=== PATIENT | male | born 1955 | race Caucasian/White ===

== ENCOUNTER → 2024-09-11 13:35 | Outpatient (REF) | payer OTHER, SELFPAY ==
[2024-09-11 15:07] LABS: % Basophils 0.2 % (0-2); % Eosinophils 0.1 % (0-6); % Immature Granulocytes 0.3 % (0-0.5); % Lymphocytes 13.4 % (20.5-51.1); % Monocytes 9.8 % (1.7-9.3); % Neutrophils 76.2 % (42.2-75.2); Absolute Lymphocytes 1.6 10^3/uL (1.2-3.4); Absolute Monocytes 1.1 10^3/uL (0.1-0.6); Absolute Neutrophils 8.9 10^3/uL (1.4-6.5); Hematocrit 45.9 % (39.0-52.0); Hemoglobin 14.8 g/dL (13.0-18.0); Mean Corp Hgb Conc. 32.2 g/dL (33.0-37.0); Mean Corpuscular Volume 96.2 fL (80.0-94.0); Nucleated Red Blood Cells % 0 % (-); Platelet Count 169 10^3/uL (130-400); Red Blood Cell Count 4.77 10^6/uL (4.70-6.10); Red Cell Dist. Width 13.2 % (11.5-14.5); White Blood Cell Count 11.6 10^3/uL (4.8-10.8)
[2024-09-11 15:19] LABS: ALT (SGPT) 12 U/L (0-50); AST (SGOT) 18 U/L (17-59); Albumin 4.3 g/dl (3.5-5.0); Alkaline Phosphatase 69 U/L (38-126); Blood Urea Nitrogen 8 mg/dl (9-20); Calcium 10.3 mg/dl (8.4-10.2); Carbon Dioxide 27 mmol/L (22-30); Chloride 106 mmol/L (98-107); Glucose 85 mg/dl (70-99); HDL Cholesterol 62 mg/dl; LDL Cholesterol, Calculated 78 mg/dl; Potassium 4.7 mmol/L (3.5-5.1); Sodium 143 mmol/L (135-145); Total Bilirubin 0.7 mg/dl (0.2-1.3); Total Cholesterol 157 mg/dl (50-199); Total Protein 7.3 g/dl (6.3-8.2); Triglyceride 88 mg/dl (10-149); Very Low Density Lipoprotein 17 mg/dl (0-30); eGFR > 60.00
[2024-09-11 15:39] LABS: Microalbumin, Random Urine < 0.6 mg/dl (0.6-1.7)
[2024-09-12 09:05] LABS: Glycohemoglobin (HgbA1c) 5.7 % (4.0-5.6)
== END ==
LOC: REG 13:35
PROVIDERS: ATTENDING PHYSICIAN Physician Assistant Medical
DX: E11.9 Type 2 diabetes mellitus without complications (principal); M25.511 Pain in right shoulder; M25.512 Pain in left shoulder
CPT/HCPCS: 36415; 73030; 80053; 80061; 82043; 82570; 83036; 85025

== ENCOUNTER 2024-11-09 17:19 | Observation (INO) | payer OTHER, SELFPAY ==
[2024-11-09 11:30] VITALS: BP 137/92
[2024-11-09 12:03] LABS: Hematocrit 41.2 % (39.0-52.0); Hemoglobin 13.6 g/dL (13.0-18.0); Mean Corp Hgb Conc. 33.0 g/dL (33.0-37.0); Mean Corpuscular Volume 93.0 fL (80.0-94.0); Nucleated Red Blood Cells % 0 % (-); Platelet Count 175 10^3/uL (130-400); Red Cell Dist. Width 13.3 % (11.5-14.5)
[2024-11-09 12:31] LABS: Blood Urea Nitrogen 12 mg/dl (9-20); Calcium 9.1 mg/dl (8.4-10.2); Carbon Dioxide 21 mmol/L (22-30); Chloride 108 mmol/L (98-107); Glucose 75 mg/dl (70-99); Potassium 4.4 mmol/L (3.5-5.1); Sodium 138 mmol/L (135-145); eGFR > 60.00
[2024-11-09 14:04] LABS: Depakane 99.4 ug/ml (50.0-120.0)
[2024-11-09 14:51] VITALS: BP 135/79
[2024-11-09 15:13] LABS: Urine Character Clear (Clear)
[2024-11-09 15:31] LABS: COVID-19 Antigen Negative (Negative)
[2024-11-09 15:53] LABS: ALT (SGPT) 11 U/L (0-50); AST (SGOT) 15 U/L (17-59); Albumin 3.7 g/dl (3.5-5.0); Alkaline Phosphatase 61 U/L (38-126); Total Protein 6.2 g/dl (6.3-8.2)
--- NOTE | 2024-11-09 16:04 | ED.GENMED ---
History of Present Illness
General
Chief Complaint: Fatigue
Time Seen by Provider: 11/09/24 12:06
History of Present Illness
History of Present Illness:
69-year-old male with history of behavioral disorders and diabetes presents to the emergency department for evaluation of severe weakness. He notes he has had diffuse myalgias arthralgias to bilateral upper extremities for the past 6 months or
more, has not gotten this evaluated by the primary care physician. Over the past several days he has been essentially unable to care for himself because he has a hard time in bed and a hard time using the arms. He also feels though he has a hard
time ambulating due to a shuffling gait. Denies any true difficulty breathing or URI symptoms at this time.
Review of Systems
Review of Systems
Allergies reviewed?: Yes
All Other Systems: ROS reviewed and negative except as documented in HPI and ROS
Phy Exam
Physical Exam
Physical Exam:
GEN: Well appearing, NAD, WDWN
Eyes: PERRLA, EOMs intact, no scleral icterus
HENT: NCAT, oral mucosa moist
Lungs: CTAB, no wheezes, rales, rhonchi, normal chest wall excursion
Cardiac: RRR, no M/R/G, no peripheral edema. Radial pulses 2+ bilat
Abdomen: S, NT, ND, NABS, no masses or hepatosplenomegaly
Neuro: AO x 3, moves all extremities freely, upper extremities appear weak but this is potentially related to pain, gait is shuffling and unsteady
MSK: No gross deformity or ecchymosis. No large joint effusions to the upper or lower extremities
Skin: No rashes, petechiae. Normal color, no pallor or jaundice.
Psych: Calm, cooperative, proper hygiene
Course
Orders/Labs/Results
Orders:
Orders
11/09/24 11:49
BMP [Basic Metabolic Panel] Urgent
Complete Blood Count/With Diff Urgent
Kfxhn-Ujtr-Exhkyce Urgent
Comment: ADDON
11/09/24 13:26
Add On- LAB Urgent
Tests Added?: LFT, calcium
CT Head W/o Iv Contrast Urgent
Comment:
Reason For Exam: weakness, shuffling gait
11/09/24 13:31
Valproic Acid Level [Depakane] Urgent
11/09/24 14:54
CR Chest - 2 Views Urgent
Comment:
Reason For Exam: fever
11/09/24 15:02
COVID-19 Antigen Urgent
Source: Nasal Swab
Urinalysis Reflex To Culture Urgent
Date Specimen was Collected: 11/09/24
Time Specimen was Collected: 14:56
11/09/24 16:22
Blood Culture Q30M
JULIO CÉSAR Source: Blood/Venous
Specimen Description:
Blood Culture Q30M
JULIO CÉSAR Source: Blood/Venous
Specimen Description:
Influenza A+B Rapid Molecular Urgent
JULIO CÉSAR Source: Nasal Swab
Specimen Description:
11/09/24 16:40
Obtain Records As Directed
Dates of Information to be Released: Most Recent
Type of Information Requested: Last Office Visit H&P
Obtain Records from: PCP - Drew Medley [facility]
11/09/24 16:44
Admit/Transfer Patient As Directed
Co-Sign Provider:
Level of Care: Observation services
Assign to:: Medical/Surgical
Physician / Group: Arcadio
Diagnosis: Fever, Ambulatory Dysfunction
PRN Pain Medication Management As Directed
May give lesser potent ordered pain med per pt: Yes
preference::
Protocol:: Medication orders for pain may be administered in a
manner that supports deferring to patient preference
when the pt is:
- Requesting an ordered lesser potent pain medication.
Least to most potent pain medications are defined
as: acetaminophen < NSAID < tramadol < opioids
(morphine, oxycodone, hydromorphone).
- Requesting a lesser dose of the same medication IF
ORDERED.
- Requesting a less intrusive route of administration
if both routes are prescribed by the provider (PO <
IV).
11/09/24 16:46
Code Status As Directed
Resuscitation Status: Full Code
Abnormal Lab Results
11/09/24 11/09/24
11:49 15:02
RBC 4.43 L 10^6/uL
(4.70-6.10)
MPV 10.7 H fL
(7.4-10.4)
Abs Immat Gran (auto) 0.1 H 10^3/uL
(0-0.05)
Absolute Neuts (auto) 7.1 H 10^3/uL
(1.4-6.5)
Absolute Monos (auto) 1.4 H 10^3/uL
(0.1-0.6)
Immature Gran % 1.3 H %
(0-0.5)
Lymphocytes % 14.9 L %
(20.5-51.1)
Monocytes % 13.5 H %
(1.7-9.3)
Chloride 108 H mmol/L
(98-107)
Carbon Dioxide 21 L mmol/L
(22-30)
Creatinine 0.4 L mg/dL
(0.7-1.3)
AST 15 L U/L
(17-59)
Total Protein 6.2 L g/dl
(6.3-8.2)
Urine Ketones 3+ A
(Negative)
Urine Glucose 4+ A
(Negative)
11/09/24 11:49
11/09/24 11:49
Vital Signs
Initial and Last Documented VS:
Initial Vital Signs
Temp Pulse Resp BP Pulse Ox
99.7 F 91 18 137/92 95
11/09/24 11:30 11/09/24 11:30 11/09/24 11:30 11/09/24 11:30 11/09/24 11:30
Last Documented Vital Signs
Temp Pulse Resp BP Pulse Ox
97.7 F 70 18 157/110 97
11/09/24 17:44 11/09/24 17:44 11/09/24 17:44 11/09/24 17:44 11/09/24 17:44
MDM/Problems Addressed
MDM/Problems Addressed:
Because the patient's symptoms at this time is not clear however he seems profoundly functionally deconditioned and unable to get himself up out of bed. 6-month duration of symptoms suggest an autoimmune condition however his gait and overall
appearance is suspicious for parkinsonism. He is not a safe discharge at this will admit
*Pulse Oximetry
SaO2: 100
Oxygen Mode of Delivery: Room air
Patient hypoxic: no
*Critical Care Note
Total Time (30-74mins, 75-104mins- exclusive of procedures): Not Applicable
ED Attending Note
-
Portions of this chart may have been created with voice recognition software.� Occasional wrong word or��sound alike� substitutions may have occurred due to the inherent limitations of voice recognition software.
Discharge Plan
Departure
Patient Disposition: Admit
Date of Disposition: 11/09/24
Time of Disposition: 16:07
Admit to: Med/Surg
Presentation/result/management discussed w/ accepting MD/DO: Hospitalist
Discharge Problem:
Acute febrile illness, Weakness
Interventions
Interventions:
*Risk Screen - Suicide Last Done: 11/09/24 11:30
*General Assessment Last Done: 11/09/24 11:36
*Neglect/Abuse Screening Last Done: 11/09/24 11:30
*ED- Fall Risk Assessment Last Done: 11/09/24 11:36
*ED COVID-19 Vaccine History Last Done: 11/09/24 11:36
--- NOTE | 2024-11-09 16:15 | HPS.HSE ---
Family Physician
-
Family Physician: Drew Medley
Chief Complaint
-
Fatigue and Muscle Pain
History of Present Illness
Patient is a 69-year-old male past medical history of schizoaffective disorder, diabetes mellitus and hyperlipidemia who presents with fatigue and muscle pains. Patient is a poor historian. He resides in a group apartment part of [facility]. Prior to two days ago patient was managing his own medications but patient has been having more difficulty taking care of himself and staff took over managing his medications. Patient reports he feels generally weak and fatigued. He
reports some muscle pains. While in the emergency department he was found to have a temp of 100.6F. Patient was not aware he had a fever. He denies any other associated symptoms.
Medical History
Past Medical History
Past Medical History: Reports Other
Additional Past Medical History:
Diabetes Mellitus, Type II
Schizoaffective Disorder
GERD
Essential Tremors
Hyperlipidemia
Short-Term Memory Loss
Past Surgical History: Reports Other
Social History
Tobacco: Non-smoker
Family History
Family History: Not pertinent
Allergies / Home Medications
Allergies reflects when Allergies were last updated in [employer].
Home Medications with original date entered in [employer]
Allergy/Medication List:
Allergies
Allergy/AdvReac Type Severity Reaction Status Date / Time
chloral hydrate Allergy Unknown Verified 11/09/24 11:32
haloperidol Allergy Unknown Verified 11/09/24 11:32
Home Medications
atorvastatin 40 mg tablet (Lipitor) 40 mg PO QPM 11/09/24
benztropine 0.5 mg tablet 0.5 mg PO HS 11/09/24
divalproex 500 mg tablet,extended release 24 hr 1,000 mg PO HS 11/09/24
empagliflozin 10 mg tablet (Jardiance) 10 mg PO DAILY 11/09/24
glimepiride 4 mg tablet 4 mg PO DAILY 11/09/24
metformin 500 mg tablet 1,000 mg PO BID 11/09/24
omeprazole 40 mg capsule,delayed release 40 mg PO DAILY 11/09/24
quetiapine 400 mg tablet (Seroquel) 400 mg PO HS 11/09/24
Review of Systems
-
A 12 point ROS was completed and negative except as noted: Yes
Constitutional: Reports Fever; Denies Chills
Respiratory: Denies Cough or Trouble Breathing
Cardiac: Denies Chest Pain or Palpitations
Abdomen/GI: Denies Abdominal Pain, Nausea, Vomiting or Diarrhea
: Denies Dysuria
Physical Exam
Vital Signs
Vital Signs
Temp Pulse Resp BP Pulse Ox
100.6 F H 93 18 135/79 100
11/09/24 14:51 11/09/24 14:51 11/09/24 14:51 11/09/24 14:51 11/09/24 16:07
Physical Exam
General: Comfortable and Conversant
HEENT: Anicteric and Moist mucous membranes
Respiratory: Clear and Non Labored Respirations
Cardiac: S1/S2 and Regular Rhythm
GI: Soft and Non Tender
Genito-urinary: Clear Urine
Musculoskeletal: No Clubbing and No Cyanosis
Skin: Warm and Dry; No Rash
Neuro: Awake, Alert, Oriented and Nonfocal/grossly intact
Psych: Other (Forgetful)
Laboratory Results
-
11/09/24 11:49
11/09/24 11:49
Laboratory Results
Total Bilirubin 0.4 mg/dl (0.2-1.3) 11/09/24 11:49
AST 15 U/L (17-59) L 11/09/24 11:49
ALT 11 U/L (0-50) 11/09/24 11:49
Alkaline Phosphatase 61 U/L (38-126) 11/09/24 11:49
Chest X-Ray:
No acute cardiopulmonary process.
Head CT:
No evidence of acute intracranial abnormality.
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
Data Reviewed
-
Diagnostic Radiology: Report Reviewed by me
CT Scan: Report Reviewed by me
Lab Data: Labs Reviewed by me
Impression/Plan
-
Febrile Illness
-Check Influenza swab
-Check blood cultures
-Monitor fever curve
Ambulatory Dysfunction
-Consult PT/OT
-Incidental focal area of encephalomalacia in right temporal lobe noted on head CT, appears old and does not appear to be contributing to current symtpoms
Diabetes Mellitus, Type II
-Sugars running on the low side
-Continue Jardiance and metformin
-Hold Glipizide
Hyperlipidemia
-Continue atorvastatin
Schizoaffective Disorder
-Continue benztropine, divalproex, quetiapine
GERD
-Continue Protonix
DVT proph: Lovenox
Code Status: Full Code
[2024-11-09 17:44] VITALS: BP 157/110
--- NOTE | 2024-11-09 17:54 | CM ---
CM reviewed chart and met with pt bedside in ED. Pt lives with roommates in 2 story hopau[place], 10 YVES, has first floor half BA, full flight of steps to second floor BR/full BA.
Pt independent with ADLs, personal care and ambulation at baseline. NO DME.
No hx VN or SNF.
PCP: Drew Medley
[address] [id number] [address]
CM will continue to follow for discharge planning needs.
[2024-11-09 18:38] VITALS: BMI 21.1
[2024-11-09 18:48] VITALS: BP 153/103; BMI 21.1
[2024-11-09] MEDS: LIPITOR 40 MG PO (19:15)
[2024-11-09] MEDS: GLUCOPHAGE 1000 MG PO (19:15)
[2024-11-09] MEDS: LOVENOX 40 MG SC (19:15)
[2024-11-09] MEDS: NSS 1000 IV (19:16)
[2024-11-09 19:20] LABS: Glucose - Point of Care 80 mg/dl (70-99)
--- NOTE | 2024-11-09 19:41 | PTCARENOTE ---
pt admitted from ED to room 418-01. pt pulled over from stretcher to bed. pt awake, poor historian, forgetful, reports generalized weakness, and pain in upper extremities. bedscale weight obtained. pt oriented to room and unit. bilateral upper
extremity tremors noted.
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
[2024-11-09] MEDS: COGENTIN 0.5 MG PO (21:09)
[2024-11-09] MEDS: SEROQUEL 400 MG PO (21:09)
[2024-11-09] MEDS: DEPAKOTE ER (24 HR RELEASE) 1000 MG PO (21:09)
[2024-11-09] MEDS: TYLENOL 650 MG PO (21:17)
[2024-11-09 21:45] LABS: Glucose - Point of Care 157 mg/dl (70-99)
[2024-11-09 23:49] VITALS: BP 130/88
[2024-11-10 06:00] VITALS: BMI 21.1
[2024-11-10] MEDS: NSS 1000 IV (06:56)
[2024-11-10] MEDS: TYLENOL 650 MG PO (07:09)
[2024-11-10 07:47] LABS: Glucose - Point of Care 95 mg/dl (70-99)
[2024-11-10 08:00] VITALS: BP 165/86
[2024-11-10] MEDS: NOVOLOG FLEXPEN-MODERATE RESISTANCE SC ×2 (08:00→12:38)
[2024-11-10 08:06] LABS: Hematocrit 39.8 % (39.0-52.0); Hemoglobin 13.2 g/dL (13.0-18.0); Mean Corp Hgb Conc. 33.2 g/dL (33.0-37.0); Mean Corpuscular Volume 94.3 fL (80.0-94.0); Platelet Count 172 10^3/uL (130-400); Red Cell Dist. Width 13.6 % (11.5-14.5)
[2024-11-10 08:31] LABS: Blood Urea Nitrogen 11 mg/dl (9-20); Calcium 9.1 mg/dl (8.4-10.2); Carbon Dioxide 22 mmol/L (22-30); Chloride 109 mmol/L (98-107); Estimated Creatinine Clearance 116 ml/min; Glucose 72 mg/dl (70-99); Magnesium 2.2 mg/dl (1.6-2.3); Potassium 4.3 mmol/L (3.5-5.1); Sodium 141 mmol/L (135-145); eGFR > 60.00
[2024-11-10 09:20] VITALS: BP 130/84; PULSE 78; O2SAT 95
[2024-11-10 09:21] VITALS: BP 130/84; PULSE 78; O2SAT 95
[2024-11-10] MEDS: GLUCOPHAGE 1000 MG PO ×2 (09:39→18:12)
[2024-11-10] MEDS: FARXIGA 10 MG PO (09:39)
[2024-11-10] MEDS: PROTONIX 40 MG PO (09:40)
--- NOTE | 2024-11-10 09:48 | W.PN.HOSP.TC ---
Today's Communication/Plan
-
see plan
Assessment / Plan
Assessment / Plan
Gen: NAD, AAOx3.
Eyes: EOMI, PERRLA, no scleral icterus.
Neck: supple.
CV: RRR, +S1/S2, no m/r/g.
Resp: CTAB, no rales, wheezes, or rhonchi.
Abd: +BS, soft, NT, ND
Skin: No rashes.
Neuro: CN 2-12 intact, non-focal.
Psych: Normal mood and affect.
CXR: No acute cardiopulmonary process.
CT brain: No evidence of acute intracranial abnormality. 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
Febrile Illness:
-isolated fever, no recurrence
-COVID/Flu NEG
-BCxs pending
-with myalgias check CPK, BG, ESR, CRP
Ambulatory Dysfunction
-Consult PT/OT
-Incidental focal area of encephalomalacia in right temporal lobe noted on head CT, appears old and does not appear to be contributing to current symptoms
-MRI brain ordered
DM2:
-Continue Jardiance and metformin
-Holding home Glipizide
-check a1c
Other problems:
Hyperlipidemia: cont statin
Schizoaffective Disorder: cont benztropine, divalproex, quetiapine
GERD: cont PPI
FULL/Lovenox
Anticipated Discharge: 24 - 48 hours
Subjective/Interval History
-
Date of Service: November 10, 2024
Objective Data
-
Labs:
Laboratory Results
11/10/24
06:51
WBC 6.5
Hgb 13.2
Hct 39.8
Plt Count 172
Sodium 141
Potassium 4.3
Chloride 109 H
Carbon Dioxide 22
BUN 11
Creatinine 0.4 L
Glucose 72
Calcium 9.1
Vital Signs:
Vital Signs
Temp Pulse Resp BP Pulse Ox
98.1 F 83 16 165/86 93
11/10/24 08:00 11/10/24 08:00 11/10/24 08:00 11/10/24 08:00 11/10/24 08:00
I&O
11/09/24 11/10/24 11/11/24
06:59 06:59 06:59
Intake Total 1240 / 1240
Output Total 425 / 425
Balance 815 / 815
[2024-11-10 11:56] LABS: Glycohemoglobin (HgbA1c) 6.0 % (4.0-5.6)
[2024-11-10 12:12] LABS: Glucose - Point of Care 134 mg/dl (70-99)
[2024-11-10 12:33] LABS: C-Reactive Protein 87.00 mg/L (0.0-10.00)
[2024-11-10 15:28] VITALS: BP 155/95
[2024-11-10 17:14] LABS: Glucose - Point of Care 189 mg/dl (70-99)
[2024-11-10] MEDS: NOVOLOG FLEXPEN-MODERATE RESISTANCE 1 UNITS SC (18:09)
[2024-11-10] MEDS: LIPITOR 40 MG PO (18:12)
[2024-11-10] MEDS: LOVENOX 40 MG SC (18:12)
[2024-11-10 21:44] LABS: Glucose - Point of Care 116 mg/dl (70-99)
[2024-11-10] MEDS: COGENTIN 0.5 MG PO (21:55)
[2024-11-10] MEDS: SEROQUEL 400 MG PO (21:55)
[2024-11-10] MEDS: DEPAKOTE ER (24 HR RELEASE) 1000 MG PO (21:56)
[2024-11-10 23:22] VITALS: BP 122/83
[2024-11-11] MEDS: NSS 1000 IV ×3 (03:03→21:25)
[2024-11-11 06:00] VITALS: BMI 21.3
[2024-11-11 07:00] VITALS: BP 142/86
[2024-11-11 07:13] LABS: Glucose - Point of Care 122 mg/dl (70-99)
--- NOTE | 2024-11-11 07:59 | W.PN.HOSP.TC ---
Today's Communication/Plan
-
see plan
Assessment / Plan
Assessment / Plan
Gen: NAD, awake and alert
Eyes: EOMI, PERRLA, no scleral icterus.
Neck: supple.
CV: Remains RRR, +S1/S2, no m/r/g.
Resp: CTAB, no rales, wheezes, or rhonchi.
Abd: +BS, soft, NT, ND
Skin: No rashes.
Neuro: CN 2-12 intact, patient moves all 4 extremities but he says movement is limited due by pain
Psych: Normal mood and affect.
11/09/24 16:22 Blood/Venous Blood Culture - Preliminary
No Growth in 24 hours- Final report to follow
11/09/24 16:22 Blood/Venous Blood Culture - Preliminary
No Growth in 24 hours- Final report to follow
11/09/24 16:22 Nasal Swab Influenza Types A & B (ROBE) - Final
Negative for Influenza A & B, NAAT
Negative results must be combined with clinical observations
and patient history.
Nucleic Acid Amplification test (NAAT)performed on the
[employer] ID NOW platform.
CXR: No acute cardiopulmonary process.
CT brain: No evidence of acute intracranial abnormality. 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
MRI brain: No acute intracranial abnormality.
Febrile Illness:
-isolated fever, no recurrence
-COVID/Flu NEG
-BCxs NGTD
-with myalgias serologies checked as follows: ESR 15, CRP 87, CPK 31, BG pending
-Pt without recurrent fever and BCxs NG x 24 hours. Doubt fever was related to infection, more likely inflammatory state. Cont to monitor off abx.
-will give one dose of Prednisone 40mg and monitor for clinical response
Ambulatory Dysfunction
-PT/OT
-Incidental focal area of encephalomalacia in right temporal lobe noted on head CT, appears old and does not appear to be contributing to current symptoms
-MRI brain without acute intracranial abnormality
DM2:
-a1c 6.0%
-Continue Jardiance and metformin
-resume home Glipizide based on BG trend
Other problems:
Hyperlipidemia: cont statin
Schizoaffective Disorder: cont benztropine, divalproex, quetiapine
GERD: cont PPI
FULL/Lovenox
Dispo: monitor for response to 1 dose Prednisone. Likely d/c 11/12/24.
Anticipated Discharge: Today
Subjective/Interval History
-
Date of Service: November 11, 2024
Still with myalgias
Objective Data
-
Vital Signs:
Vital Signs
Temp Pulse Resp BP Pulse Ox
98.0 F 81 16 142/86 96
11/11/24 07:00 11/11/24 07:00 11/11/24 07:00 11/11/24 07:00 11/11/24 07:00
I&O
11/10/24 11/11/24 11/12/24
06:59 06:59 06:59
Intake Total 1240 / 1240 1800 / 1800
Output Total 425 / 425 1125 / 1125
Balance 815 / 815 675 / 675
[2024-11-11] MEDS: NOVOLOG FLEXPEN-MODERATE RESISTANCE SC ×2 (08:00→17:02)
[2024-11-11] MEDS: DELTASONE 40 MG PO (10:44)
[2024-11-11] MEDS: GLUCOPHAGE 1000 MG PO ×2 (10:45→17:10)
[2024-11-11] MEDS: AMARYL 4 MG PO (10:45)
[2024-11-11] MEDS: PROTONIX 40 MG PO (10:45)
[2024-11-11] MEDS: FARXIGA 10 MG PO (10:46)
[2024-11-11 11:43] LABS: Hepatitis C Antibody Negative (Negative)
[2024-11-11 13:09] LABS: Glucose - Point of Care 168 mg/dl (70-99)
[2024-11-11] MEDS: NOVOLOG FLEXPEN-MODERATE RESISTANCE 1 UNITS SC (13:57)
[2024-11-11 14:57] VITALS: BP 149/88
[2024-11-11 16:45] LABS: Glucose - Point of Care 105 mg/dl (70-99)
[2024-11-11] MEDS: LOVENOX 40 MG SC (17:09)
[2024-11-11] MEDS: LIPITOR 40 MG PO (17:10)
[2024-11-11] MEDS: DEPAKOTE ER (24 HR RELEASE) 1000 MG PO (21:14)
[2024-11-11] MEDS: COGENTIN 0.5 MG PO (21:15)
[2024-11-11] MEDS: SEROQUEL 400 MG PO (21:15)
[2024-11-11 21:19] LABS: Glucose - Point of Care 114 mg/dl (70-99)
[2024-11-11 23:35] VITALS: BP 139/85
[2024-11-12 06:00] VITALS: BMI 21.4
[2024-11-12 07:34] LABS: Hematocrit 36.8 % (39.0-52.0); Hemoglobin 12.0 g/dL (13.0-18.0); Mean Corp Hgb Conc. 32.6 g/dL (33.0-37.0); Mean Corpuscular Volume 95.8 fL (80.0-94.0); Nucleated Red Blood Cells % 0 % (-); Platelet Count 192 10^3/uL (130-400); Red Cell Dist. Width 13.4 % (11.5-14.5)
[2024-11-12 08:00] VITALS: BP 146/82
[2024-11-12 08:17] LABS: Blood Urea Nitrogen 14 mg/dl (9-20); Calcium 9.0 mg/dl (8.4-10.2); Carbon Dioxide 27 mmol/L (22-30); Chloride 112 mmol/L (98-107); Estimated Creatinine Clearance 118 ml/min; Glucose 72 mg/dl (70-99); Potassium 4.0 mmol/L (3.5-5.1); Sodium 142 mmol/L (135-145); eGFR > 60.00
[2024-11-12 08:34] LABS: Glucose - Point of Care 78 mg/dl (70-99)
[2024-11-12] MEDS: TYLENOL 650 MG PO (09:09)
[2024-11-12] MEDS: PROTONIX 40 MG PO (09:11)
[2024-11-12] MEDS: AMARYL 4 MG PO (09:11)
[2024-11-12] MEDS: FARXIGA 10 MG PO (09:11)
[2024-11-12] MEDS: GLUCOPHAGE 1000 MG PO ×2 (09:12→17:34)
[2024-11-12] MEDS: NOVOLOG FLEXPEN-MODERATE RESISTANCE SC ×3 (09:12→17:33)
--- NOTE | 2024-11-12 10:10 | W.PN.HOSP.TC ---
Today's Communication/Plan
-
continue steroids
monitor symptoms
repeat CRP in AM
DC planning to SNF and eventual OP rheum eval
Assessment / Plan
Assessment / Plan
Gen: NAD, awake and alert
Eyes: EOMI, PERRLA, no scleral icterus.
Neck: supple.
CV: Remains RRR, +S1/S2, no m/r/g.
Resp: CTAB, no rales, wheezes, or rhonchi.
Abd: +BS, soft, NT, ND
Skin: No rashes.
Neuro: CN 2-12 intact, patient moves all 4 extremities but he says movement is limited due by pain
Psych: Normal mood and affect.
11/09/24 16:22 Blood/Venous Blood Culture - Preliminary
No Growth in 24 hours- Final report to follow
11/09/24 16:22 Blood/Venous Blood Culture - Preliminary
No Growth in 24 hours- Final report to follow
11/09/24 16:22 Nasal Swab Influenza Types A & B (ROBE) - Final
Negative for Influenza A & B, NAAT
Negative results must be combined with clinical observations
and patient history.
Nucleic Acid Amplification test (NAAT)performed on the
[employer] ID NOW platform.
CXR: No acute cardiopulmonary process.
CT brain: No evidence of acute intracranial abnormality. 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
MRI brain: No acute intracranial abnormality.
Febrile Illness:
-isolated fever, no recurrence
-COVID/Flu NEG
-BCxs NGTD
-with myalgias serologies checked as follows: ESR 15, CRP 87, CPK 31, BG pending
-Pt without recurrent fever and BCxs NG x 24 hours. Doubt fever was related to infection, more likely inflammatory state. Cont to monitor off abx.
-continue steroids; taper over weeks
- repeat CRP in AM
- OP Rheum eval for underlying rheum/vasculitis d/o
Ambulatory Dysfunction
-PT/OT - SNF recommended. Patient agreeable.
-Incidental focal area of encephalomalacia in right temporal lobe noted on head CT, appears old and does not appear to be contributing to current symptoms
-MRI brain without acute intracranial abnormality
DM2:
-a1c 6.0%
-Continue Jardiance and metformin
-resume home Glipizide based on BG trend
Hyperlipidemia: cont statin
Schizoaffective Disorder: cont benztropine, divalproex, quetiapine
GERD: cont PPI
DVT ppx: Lovenox
Code: Full
Anticipated Discharge: 24 - 48 hours
Subjective/Interval History
-
Date of Service: November 12, 2024
reports mild improvement with steroid dose from 11/11
reports mostly upper arm discomfort
denies joint pains, rash, no headaches. no GI complaints
Objective Data
-
Labs:
Laboratory Results
11/12/24
06:44
WBC 7.5
Hgb 12.0 L
Hct 36.8 L
Plt Count 192
Sodium 142
Potassium 4.0
Chloride 112 H
Carbon Dioxide 27
BUN 14
Creatinine 0.5 L
Glucose 72
Calcium 9.0
Vital Signs:
Vital Signs
Temp Pulse Resp BP Pulse Ox
97.9 F 68 16 146/82 95
11/12/24 08:00 11/12/24 08:00 11/12/24 08:00 11/12/24 08:00 11/12/24 08:00
I&O
11/11/24 11/12/24 11/13/24
06:59 06:59 06:59
Intake Total 1800 / 1800 4340 / 4340
Output Total 1125 / 1125 1725 / 1725
Balance 675 / 675 2615 / 2615
Data Reviewed
-
Total Time Spent with Patient (in minutes): 42
Labs: Labs Reviewed by me
--- NOTE | 2024-11-12 11:02 | CM ---
Chart reviewed. Therapy rec SNF at d/c. Discussed w/ patient who is agreeable, confirmed he is located in [place] but is open to facilities in [place] as well. CM advised patient not all facilities accept [employer] insurance and will refer to the
facilities that do with consideration of his preferred geographic location. Patient is aware and understands location may have to be expanded if needed.
Referrals sent to [facility]
Patient will need auth prior to d/c
Plan: SNF
[2024-11-12 11:38] LABS: Glucose - Point of Care 99 mg/dl (70-99)
[2024-11-12] MEDS: DELTASONE 40 MG PO (14:39)
[2024-11-12 15:35] VITALS: BP 129/87; PULSE 70; O2SAT 96
[2024-11-12 15:44] VITALS: BP 129/87; BP 149/90; PULSE 71; O2SAT 96
[2024-11-12 16:59] LABS: Glucose - Point of Care 100 mg/dl (70-99)
[2024-11-12] MEDS: LIPITOR 40 MG PO (17:37)
[2024-11-12] MEDS: LOVENOX 40 MG SC (17:37)
[2024-11-12] MEDS: NSS 1000 IV (19:48)
[2024-11-12 21:12] LABS: Glucose - Point of Care 187 mg/dl (70-99)
[2024-11-12] MEDS: DEPAKOTE ER (24 HR RELEASE) 1000 MG PO (21:18)
[2024-11-12] MEDS: SEROQUEL 400 MG PO (21:18)
[2024-11-12] MEDS: COGENTIN 0.5 MG PO (21:18)
[2024-11-12 23:18] VITALS: BP 103/65
[2024-11-13 06:00] VITALS: BMI 21.5
[2024-11-13 07:38] LABS: Hematocrit 36.9 % (39.0-52.0); Hemoglobin 12.2 g/dL (13.0-18.0); Mean Corp Hgb Conc. 33.1 g/dL (33.0-37.0); Mean Corpuscular Volume 94.1 fL (80.0-94.0); Platelet Count 225 10^3/uL (130-400); Red Cell Dist. Width 13.1 % (11.5-14.5)
[2024-11-13 07:54] LABS: Glucose - Point of Care 70 mg/dl (70-99)
[2024-11-13 08:18] VITALS: BP 144/85
[2024-11-13] MEDS: NOVOLOG FLEXPEN-MODERATE RESISTANCE SC ×3 (08:19→16:31)
[2024-11-13] MEDS: GLUCOPHAGE 1000 MG PO ×2 (08:19→17:54)
[2024-11-13] MEDS: AMARYL 4 MG PO (08:19)
[2024-11-13] MEDS: DELTASONE 40 MG PO (08:19)
[2024-11-13] MEDS: PROTONIX 40 MG PO (08:19)
[2024-11-13] MEDS: FARXIGA 10 MG PO (08:19)
[2024-11-13 08:47] LABS: Blood Urea Nitrogen 12 mg/dl (9-20); Calcium 9.0 mg/dl (8.4-10.2); Carbon Dioxide 26 mmol/L (22-30); Chloride 113 mmol/L (98-107); Estimated Creatinine Clearance 118 ml/min; Glucose 72 mg/dl (70-99); Potassium 4.1 mmol/L (3.5-5.1); Sodium 142 mmol/L (135-145); eGFR > 60.00
[2024-11-13 08:55] LABS: C-Reactive Protein 51.90 mg/L (0.0-10.00)
--- NOTE | 2024-11-13 10:18 | CM ---
Addendum entered by Cathi Patel 11/13/24 15:16:
[facility] able to accept, patient agreeable, auth submitted to [facility], reference number [id number], faxed to [phone].
Original Note:
CM reviewed chart, patient seen bedside, discussed no accepting facility at this time, patient agreeable to referrals to [facility] and [facility], confirmed they accept patients insurance. Patient will require auth for SNF. CM will
continue to follow for all discharge planning needs.
Plan; SNF, pending accepting facility, will submit for auth once bed confirmed
--- NOTE | 2024-11-13 10:46 | W.PN.HOSP.TC ---
Today's Communication/Plan
-
continue steroids with taper planned
dc planning to SNF
Assessment / Plan
Assessment / Plan
Gen: NAD, awake and alert
Eyes: EOMI, PERRLA, no scleral icterus.
Neck: supple.
CV: Remains RRR, +S1/S2, no m/r/g.
Resp: CTAB, no rales, wheezes, or rhonchi.
Abd: +BS, soft, NT, ND
Skin: No rashes.
Neuro: CN 2-12 intact, patient moves all 4 extremities but he says movement is limited due by pain
Psych: Normal mood and affect.
11/09/24 16:22 Blood/Venous Blood Culture - Preliminary
No Growth in 24 hours- Final report to follow
11/09/24 16:22 Blood/Venous Blood Culture - Preliminary
No Growth in 24 hours- Final report to follow
11/09/24 16:22 Nasal Swab Influenza Types A & B (ROBE) - Final
Negative for Influenza A & B, NAAT
Negative results must be combined with clinical observations
and patient history.
Nucleic Acid Amplification test (NAAT)performed on the
[employer] NOW platform.
CXR: No acute cardiopulmonary process.
CT brain: No evidence of acute intracranial abnormality. 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
MRI brain: No acute intracranial abnormality.
Febrile Illness:
-isolated fever, no recurrence
-COVID/Flu NEG
-BCxs NGTD
-with myalgias serologies checked as follows: ESR 15 (now 30), CRP 87 (now 51), CPK 31, BG pending
-Pt without recurrent fever and BCxs NG x 72 hours. Doubt fever was related to infection, more likely inflammatory state. Cont to monitor off abx.
-continue steroids; taper over weeks
-OP Rheum eval for underlying rheum/vasculitis d/o
Ambulatory Dysfunction
-PT/OT - SNF recommended. Patient agreeable.
-Incidental focal area of encephalomalacia in right temporal lobe noted on head CT, appears old and does not appear to be contributing to current symptoms
-MRI brain without acute intracranial abnormality
DM2:
-a1c 6.0%
-Continue Jardiance and metformin
-resume home Glipizide based on BG trend
Hyperlipidemia: cont statin
Schizoaffective Disorder: cont benztropine, divalproex, quetiapine
GERD: cont PPI
DVT ppx: Lovenox
Code: Full
Anticipated Discharge: Within 24 hours
Subjective/Interval History
-
Date of Service: November 13, 2024
reports some improvement in b/l bicep discomfort
no fevers
Objective Data
-
Labs:
Laboratory Results
11/13/24
07:16
WBC 6.8
Hgb 12.2 L
Hct 36.9 L
Plt Count 225
Sodium 142
Potassium 4.1
Chloride 113 H
Carbon Dioxide 26
BUN 12
Creatinine 0.4 L
Glucose 72
Calcium 9.0
Vital Signs:
Vital Signs
Temp Pulse Resp BP Pulse Ox
97.5 F 70 16 144/85 98
11/13/24 08:18 11/13/24 08:18 11/13/24 08:18 11/13/24 08:18 11/13/24 08:20
I&O
11/12/24 11/13/24 11/14/24
06:59 06:59 06:59
Intake Total 4340 / 4340 1880 / 1880
Output Total 1725 / 1725 1350 / 1350
Balance 2615 / 2615 530 / 530
Data Reviewed
-
Total Time Spent with Patient (in minutes): 41
Labs: Labs Reviewed by me
[2024-11-13 12:38] LABS: Glucose - Point of Care 146 mg/dl (70-99)
[2024-11-13 15:58] VITALS: BP 142/81
[2024-11-13 16:31] LABS: Glucose - Point of Care 111 mg/dl (70-99)
[2024-11-13 17:53] LABS: ANA, IgG Reflex to HEp-2 None Detected (None Detected)
[2024-11-13] MEDS: LOVENOX 40 MG SC (17:54)
[2024-11-13] MEDS: LIPITOR 40 MG PO (17:54)
[2024-11-13 21:10] LABS: Glucose - Point of Care 122 mg/dl (70-99)
[2024-11-13] MEDS: DEPAKOTE ER (24 HR RELEASE) 1000 MG PO (21:51)
[2024-11-13] MEDS: COGENTIN 0.5 MG PO (21:51)
[2024-11-13] MEDS: SEROQUEL 400 MG PO (21:51)
[2024-11-13 23:20] VITALS: BP 130/90
[2024-11-14 05:50] VITALS: BMI 21.6
[2024-11-14] MEDS: PROTONIX 40 MG PO (07:21)
[2024-11-14] MEDS: AMARYL 4 MG PO (07:21)
[2024-11-14] MEDS: GLUCOPHAGE 1000 MG PO ×2 (07:21→16:37)
[2024-11-14] MEDS: DELTASONE 40 MG PO (07:21)
[2024-11-14] MEDS: FARXIGA 10 MG PO (07:21)
[2024-11-14 07:46] LABS: Glucose - Point of Care 90 mg/dl (70-99)
[2024-11-14] MEDS: NOVOLOG FLEXPEN-MODERATE RESISTANCE SC ×3 (07:53→16:46)
[2024-11-14 08:18] VITALS: BP 140/85
[2024-11-14 09:06] VITALS: BP 143/88; PULSE 62; O2SAT 97
--- NOTE | 2024-11-14 09:10 | W.PN.HOSP.TC ---
Today's Communication/Plan
-
dc to SNF
Assessment / Plan
Assessment / Plan
Gen: NAD, awake and alert
Eyes: EOMI, PERRLA, no scleral icterus.
Neck: supple.
CV: Remains RRR, +S1/S2, no m/r/g.
Resp: CTAB, no rales, wheezes, or rhonchi.
Abd: +BS, soft, NT, ND
Skin: No rashes.
Neuro: CN 2-12 intact, patient moves all 4 extremities but he says movement is limited due by pain
Psych: Normal mood and affect.
11/09/24 16:22 Blood/Venous Blood Culture - Preliminary
No Growth in 24 hours- Final report to follow
11/09/24 16:22 Blood/Venous Blood Culture - Preliminary
No Growth in 24 hours- Final report to follow
11/09/24 16:22 Nasal Swab Influenza Types A & B (ROBE) - Final
Negative for Influenza A & B, NAAT
Negative results must be combined with clinical observations
and patient history.
Nucleic Acid Amplification test (NAAT)performed on the
[employer] ID NOW platform.
CXR: No acute cardiopulmonary process.
CT brain: No evidence of acute intracranial abnormality. 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
MRI brain: No acute intracranial abnormality.
Febrile Illness:
-isolated fever, no recurrence
-COVID/Flu NEG
-BCxs NGTD
-with myalgias serologies checked as follows: ESR 15 (now 30), CRP 87 (now 51), CPK 31, BG pending
-Pt without recurrent fever and BCxs NG x >72 hours. Doubt fever was related to infection, more likely inflammatory state. Cont to monitor off abx.
-continue steroids; taper over weeks
-OP Rheum eval for underlying rheum/vasculitis d/o
Ambulatory Dysfunction
-PT/OT - SNF recommended. Patient agreeable. Patient will require less than 30 calendar days of NF service and indicated symptoms and behaviors are stable
-Incidental focal area of encephalomalacia in right temporal lobe noted on head CT, appears old and does not appear to be contributing to current symptoms
-MRI brain without acute intracranial abnormality
DM2:
-a1c 6.0%
-Continue Jardiance and metformin
-resume home Glipizide based on BG trend
Hyperlipidemia: cont statin
Schizoaffective Disorder: cont benztropine, divalproex, quetiapine
GERD: cont PPI
DVT ppx: Lovenox
Code: Full
More than 30 minutes spent in discharge including
Final examination of the patient
Summarizing hospital stay
Instructions for continuing care to all relevant caregivers
Preparation of discharge records, prescriptions, and referral forms
Total time spent (in minutes): 41
Anticipated Discharge: Today
Subjective/Interval History
-
Date of Service: November 14, 2024
resting comfortably, no complaints
tolerating steroids
Objective Data
-
Vital Signs:
Vital Signs
Temp Pulse Resp BP Pulse Ox
97.4 F 65 14 140/85 96
11/14/24 08:18 11/14/24 08:18 11/14/24 08:18 11/14/24 08:18 11/14/24 08:18
I&O
11/13/24 11/14/24 11/15/24
06:59 06:59 06:59
Intake Total 1880 / 1880 1300 / 1300
Output Total 1350 / 1350 1375 / 1375
Balance 530 / 530 -75 / -75
Physical Exam
-
General: No Apparent Distress
HEENT: Normocephalic and Atraumatic
Respiratory: Negative Wheezes
Cardiac: Regular Rhythm and S1/S2
GI: Soft and Nontender
Musculoskeletal: No Edema
Neuro: AO x 3
Psych: Calm
Data Reviewed
-
Total Time Spent with Patient (in minutes): 41
Labs: Labs Reviewed by me
--- NOTE | 2024-11-14 09:47 | W.DS.TRANS ---
DC Summary - Medical Device
-
Discharge Instructions:
Discharge Diagnosis/Procedures biceps tenderness, weakness, bilaterally,
elevated inflammatory markers - responding to
steroids
Diet Diabetic, Carb Controlled
Activity As tolerated
Other Services PT,OT
Instructions:
Stand-Alone Forms:
Changes to Home Medications: No
Discharge Medications:
DC Medications w/original date entered in [facility]
atorvastatin 40 mg tablet (Lipitor) 40 mg PO QPM High Cholesterol 11/09/24
benztropine 0.5 mg tablet 0.5 mg PO HS Anti-Parkinson Agent 11/09/24
divalproex 500 mg tablet,extended release 24 hr 1,000 mg PO HS Seizures 11/09/24
empagliflozin 10 mg tablet (Jardiance) 10 mg PO DAILY Diabetes 11/09/24
glimepiride 4 mg tablet 4 mg PO DAILY Diabetes 11/09/24
metformin 500 mg tablet 1,000 mg PO BID Diabetes 11/09/24
omeprazole 40 mg capsule,delayed release 40 mg PO DAILY GERD 11/09/24
quetiapine 400 mg tablet (Seroquel) 400 mg PO HS Mental Health/Anxiety 11/09/24
prednisone 10 mg tablet 10 mg PO DIRECTED #50 tabs 11/14/24
Home Medication Changes
Pending Results: No
Total time spent discharging patient (in min): 41
[2024-11-14 11:17] LABS: Glucose - Point of Care 147 mg/dl (70-99)
[2024-11-14 15:22] VITALS: BP 120/72
--- NOTE | 2024-11-14 15:29 | CM ---
CM reviewed chart, spoke with Leela from [facility] ([phone]), informed CM that [facility] is not in network with patients insurance, spoke with liaison from [facility], Esteban- [facility] does have a contract with [facility]. Liaison provided with
contact number for Leela at [facility], will update CM once authorization approved, awaiting confirmation from [facility] and [facility]. Patient seen bedside, updated awaiting authorization. Patient confused about previous living situation. Patient will
require 30 day exception- PASRR signed by Hospitalist, will fax to [facility]. CM will continue to follow for all discharge planning needs.
Plan; await authorization for [facility]
[2024-11-14] MEDS: LIPITOR 40 MG PO (16:37)
[2024-11-14] MEDS: LOVENOX 40 MG SC (16:37)
[2024-11-14 16:43] LABS: Glucose - Point of Care 143 mg/dl (70-99)
[2024-11-14 16:44] VITALS: BP 120/78; PULSE 71; O2SAT 95
[2024-11-14 21:25] LABS: Glucose - Point of Care 147 mg/dl (70-99)
[2024-11-14] MEDS: SEROQUEL 400 MG PO (21:43)
[2024-11-14] MEDS: COGENTIN 0.5 MG PO (21:43)
[2024-11-14] MEDS: DEPAKOTE ER (24 HR RELEASE) 1000 MG PO (21:43)
[2024-11-14 22:50] VITALS: BP 130/83
[2024-11-15 05:07] VITALS: BMI 21.6
[2024-11-15 07:00] VITALS: BP 136/82
[2024-11-15 07:04] LABS: Glucose - Point of Care 93 mg/dl (70-99)
[2024-11-15] MEDS: NOVOLOG FLEXPEN-MODERATE RESISTANCE SC ×3 (07:22→15:45)
[2024-11-15] MEDS: FARXIGA 10 MG PO (07:23)
[2024-11-15] MEDS: PROTONIX 40 MG PO (07:23)
[2024-11-15] MEDS: DELTASONE 40 MG PO (07:23)
[2024-11-15] MEDS: GLUCOPHAGE 1000 MG PO ×2 (07:23→15:45)
[2024-11-15] MEDS: AMARYL 4 MG PO (07:23)
--- NOTE | 2024-11-15 10:16 | W.PN.HOSP.TC ---
Today's Communication/Plan
-
dc to SNF
Assessment / Plan
Assessment / Plan
Gen: NAD, awake and alert
Eyes: EOMI, PERRLA, no scleral icterus.
Neck: supple.
CV: Remains RRR, +S1/S2, no m/r/g.
Resp: CTAB, no rales, wheezes, or rhonchi.
Abd: +BS, soft, NT, ND
Skin: No rashes.
Neuro: CN 2-12 intact, patient moves all 4 extremities but he says movement is limited due by pain
Psych: Normal mood and affect.
11/09/24 16:22 Blood/Venous Blood Culture - Preliminary
No Growth in 24 hours- Final report to follow
11/09/24 16:22 Blood/Venous Blood Culture - Preliminary
No Growth in 24 hours- Final report to follow
11/09/24 16:22 Nasal Swab Influenza Types A & B (ROBE) - Final
Negative for Influenza A & B, NAAT
Negative results must be combined with clinical observations
and patient history.
Nucleic Acid Amplification test (NAAT)performed on the
[employer] NOW platform.
CXR: No acute cardiopulmonary process.
CT brain: No evidence of acute intracranial abnormality. 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
MRI brain: No acute intracranial abnormality.
Febrile Illness:
-isolated fever, no recurrence
-COVID/Flu NEG
-BCxs NGTD
-with myalgias serologies checked as follows: ESR 15 (now 30), CRP 87 (now 51), CPK 31, BG pending
-Pt without recurrent fever and BCxs NG x >72 hours. Doubt fever was related to infection, more likely inflammatory state. Cont to monitor off abx.
-continue steroids; taper over weeks
-OP Rheum eval for underlying rheum/vasculitis d/o
Ambulatory Dysfunction
-PT/OT - SNF recommended. Patient agreeable. Patient will require less than 30 calendar days of NF service and indicated symptoms and behaviors are stable
-Incidental focal area of encephalomalacia in right temporal lobe noted on head CT, appears old and does not appear to be contributing to current symptoms
-MRI brain without acute intracranial abnormality
DM2:
-a1c 6.0%
-Continue Jardiance and metformin
-resume home Glipizide based on BG trend
Hyperlipidemia: cont statin
Schizoaffective Disorder: cont benztropine, divalproex, quetiapine
GERD: cont PPI
DVT ppx: Lovenox
Code: Full
More than 30 minutes spent in discharge including
Final examination of the patient
Summarizing hospital stay
Instructions for continuing care to all relevant caregivers
Preparation of discharge records, prescriptions, and referral forms
Total time spent (in minutes): 41
Anticipated Discharge: Today
Subjective/Interval History
-
Date of Service: November 15, 2024
resting comfortably, no complaints
Objective Data
-
Vital Signs:
Vital Signs
Temp Pulse Resp BP Pulse Ox
97.7 F 65 18 136/82 99
11/15/24 07:00 11/15/24 07:00 11/15/24 07:00 11/15/24 07:00 11/15/24 07:25
I&O
11/14/24 11/15/24 11/16/24
06:59 06:59 06:59
Intake Total 1300 / 1300 1180 / 1180
Output Total 1375 / 1375 2024
Balance -75 / -75 -845 / -845
Data Reviewed
-
Total Time Spent with Patient (in minutes): 41
Labs: Labs Reviewed by me
[2024-11-15] MEDS: TYLENOL 650 MG PO (10:38)
[2024-11-15] MEDS: SENOKOT-S 1 TABLET PO (10:38)
--- NOTE | 2024-11-15 11:29 | CM ---
Addendum entered by Cathi Patel 11/15/24 14:41:
Patient seen bedside, provided with number to call for WC Van and cost, $85, patient scheduled for 4:00 p.m. transport
[facility]order[facility]
Report: [phone]

Addendum entered by Cathi Patel 11/15/24 13:02:
CM received call from [employer], auth approved 11/15-11/19, next review 11/19, reference #[id number], following CM assigned Rafaela Sidhu P: [phone], .
Original Note:
CM reviewed chart, reviewed with liaison from [facility]- awaiting update on insurance approval. Patient remains medically stable for discharge- update to Hospitalist. Patient seen bedside, aware waiting for insurance approval. Patient will
require WC van upon discharge, aware cost involved. CM will continue to follow for all discharge planning needs.
Plan; await insurance approval, [facility] working with insurance, WC Van transport required
[2024-11-15 12:10] LABS: Glucose - Point of Care 100 mg/dl (70-99)
[2024-11-15] MEDS: MIRALAX 17 GRAMS PO (15:03)
[2024-11-15 15:35] VITALS: BP 126/80
[2024-11-15 15:45] LABS: Glucose - Point of Care 266 mg/dl (70-99)
[2024-11-15 15:45] LABS: Glucose - Point of Care 180 mg/dl (70-99)
[2024-11-15] MEDS: LIPITOR 40 MG PO (15:45)
== END 2024-11-15 15:54 ==
LOC: 4 WEST ACU 17:19
PROVIDERS: Internal Medicine; Physician Assistant; Physician Assistant Medical; ADMITTING PHYSICIAN Internal Medicine; ATTENDING PHYSICIAN Internal Medicine; EMERGENCY PHYSICIAN Emergency Medicine; FAMILY PHYSICIAN Physician Assistant Medical
DX: R50.9 Fever, unspecified (principal); M79.10 Myalgia, unspecified site; R53.81 Other malaise; R26.2 Difficulty in walking, not elsewhere classified; E11.9 Type 2 diabetes mellitus without complications; E78.5 Hyperlipidemia, unspecified; F25.9 Schizoaffective disorder, unspecified; K21.9 Gastro-esophageal reflux disease without esophagitis; G25.0 Essential tremor; Z79.84 Long term (current) use of oral hypoglycemic drugs; G93.89 Other specified disorders of brain; Z11.52 Encounter for screening for COVID-19
CPT/HCPCS: 70450; 70553; 71046; 80048; 80076; 80164; 81003; 82550; 82962; 83036; 83735; 85025; 85027; 85652; 86038; 86140; 86803; 87040; 87070; 87502; 87811; 97116; 97163; 97167; 97530; 97535; 99285; A9575; G0378